=== PATIENT | male | born 1945 | race Caucasian/White ===

== ENCOUNTER → 2016-07-29 | Outpatient (CLI) | payer MEDICARE ==
--- NOTE | 2016-07-29 12:59 | REP ---
Bilateral lower extremity deep vein duplex ultrasound: The deep veins demonstrate normal compression, normal Doppler color flow and normal Doppler waveforms with respiration augmentation at multiple levels bilaterally. Impression: There is no deep vein thrombus on the right or the left. Signed by Lopez Wells MD 07/29/2016 12:49 P
== END ==
LOC: M RAD 11:52
PROVIDERS: ATTEND Physician Assistant Medical
DX: R60.9 Edema, unspecified (principal); J01.90 Acute sinusitis, unspecified; I10 Essential (primary) hypertension; B37.89 Other sites of candidiasis
CPT/HCPCS: 36415; 80053; 83880; 93970; G0463

== ENCOUNTER → 2016-07-29 | Outpatient (REF) | payer MEDICARE ==
[2016-07-29 15:38] LABS: ALBUMIN 4.5 GM/DL (3.2-5.2); ALBUMIN/GLOBULIN RATIO 1.67 (1.00-1.93); ALKALINE PHOSPHATASE 55 U/L (45-117); ALT/SGPT 24 U/L (12-78); ANION GAP 9 MEQ/L (8-16); AST/SGOT 15 U/L (15-37); BILIRUBIN,TOTAL 0.3 MG/DL (0.2-1.0); BLOOD UREA NITROGEN 17 MG/DL (7-18); CALCIUM LEVEL 9.1 MG/DL (8.8-10.2); CARBON DIOXIDE LEVEL 28 MEQ/L (21-32); CHLORIDE LEVEL 105 MEQ/L (98-107); GLOMERULAR FILTRATION RATE > 60.0 (>42); GLUCOSE, FASTING 133 MG/DL (83-110); POTASSIUM SERUM 4.2 MEQ/L (3.5-5.1); SODIUM LEVEL 142 MEQ/L (136-145); TOTAL PROTEIN 7.2 GM/DL (6.4-8.2)
== END ==
LOC: M SFHCPLAZ 11:17
PROVIDERS: ATTEND Physician Assistant Medical
DX: R60.9 Edema, unspecified (principal)

== ENCOUNTER → 2016-10-23 | Outpatient (REF) | payer MEDICARE | LOC: M SFHCPLAZ 13:09 | PROVIDERS: ATTEND Family Medicine | DX: E11.9 Type 2 diabetes mellitus without complications (principal); Z12.5 Encounter for screening for malignant neoplasm of prostate; E55.9 Vitamin D deficiency, unspecified; M10.9 Gout, unspecified; J30.89 Other allergic rhinitis ==

== ENCOUNTER → 2017-01-02 | Outpatient (REF) | payer MEDICARE | LOC: M LAB REF 12:12 | PROVIDERS: ATTEND Physician Assistant | DX: J02.9 Acute pharyngitis, unspecified (principal) ==

== ENCOUNTER 2018-09-14 08:41 | Day surgery (SDC) | payer MEDICARE ==
[~2018-09-14] VITALS: Ht 160 cm; Wt 98.9 kg
[~2018-09-14 08:41] MED LIST: AMLO25TA PO; ASPI81TA85 PO; DOXY-350 PO; GINK1CAP PO; GLIM2TAB PO; IRBE75TA5 PO; METF10004 PO; SILV50CR EXT; TORS10TA3 PO; VITA200020 PO
[2018-09-14] MEDS ORDERED: NS 1,000 ML IV ONE (09:00)
[2018-09-14] MEDS ORDERED: PROPOFOL 200 MG/20 ML VIAL As Ordered ONE ×2 (10:05→10:17)
--- NOTE | 2018-09-14 10:19 | ROOR ---
Patient Name: Richard Bowser Procedure Date: 09/14/2018 10:00 AM Date of : 1945 Age: 73 Room: [facility] Gender: Male Note Status: Finalized Procedure: Colonoscopy Indications: Screening for colorectal malignant neoplasm Providers: Oscar CARDENAS MD Referring MD: Marcos Mckoy MD Requesting Provider: Medicines: Monitored Anesthesia Care Complications: No immediate complications. Procedure: Pre-Anesthesia Assessment: - The heart rate, respiratory rate, oxygen saturations, blood pressure, adequacy of pulmonary ventilation, and response to care were monitored throughout the procedure. The Colonoscope was introduced through the anus and advanced to the cecum, identified by appendiceal orifice and ileocecal valve. The colonoscopy was performed without difficulty. The patient tolerated the procedure well. The quality of the bowel preparation was adequate. Findings: The perianal and digital rectal examinations were normal. Multiple small-mouthed diverticula were found in the sigmoid colon. Internal hemorrhoids were found during retroflexion. The hemorrhoids were medium-sized. The exam was otherwise without abnormality on direct and retroflexion views. Impression: - Diverticulosis in the sigmoid colon. - Internal hemorrhoids. - The examination was otherwise normal on direct and retroflexion views. - No specimens collected. Recommendation: - Repeat colonoscopy in 10 years for screening purposes. Oscar Cardenas MD Oscar CARDENAS MD 09/14/2018 10:19:07 AM Electronically signed by Oscar CARDENAS MD Number of Addenda: 0 Note Initiated On: 09/14/2018 10:00 AM Estimated Blood Loss: Estimated blood loss: none.
[2018-09-14 10:50] VITALS: BP 155/91
== END 2018-09-14 10:53 | disposition home or self-care (01) ==
LOC: M OPP 08:41
PROVIDERS: ATTEND Internal Medicine Gastroenterology
DX: Z12.11 Encounter for screening for malignant neoplasm of colon (principal); Z86.010 Personal history of colon polyps; K57.30 Diverticulosis of large intestine without perforation or abscess without bleeding; K64.8 Other hemorrhoids; I12.9 Hypertensive chronic kidney disease with stage 1 through stage 4 chronic kidney disease, or unspecified chronic kidney disease; E78.5 Hyperlipidemia, unspecified; E11.9 Type 2 diabetes mellitus without complications; N18.9 Chronic kidney disease, unspecified; M10.9 Gout, unspecified; C83.07 Small cell B-cell lymphoma, spleen; Z88.7 Allergy status to serum and vaccine; Z79.899 Other long term (current) drug therapy; Z79.84 Long term (current) use of oral hypoglycemic drugs

== ENCOUNTER → 2018-10-08 | Outpatient (CLI) | payer MEDICARE ==
--- NOTE | 2018-10-08 13:53 | REP ---
REASON: Chronic shoulder pain. There are no priors for comparison. There is mild asymmetric acromioclavicular joint space narrowing without prominent osteophytosis. The glenohumeral relationship is within normal limits. There is no acute fracture, dislocation, or subluxation. IMPRESSION: Chronic changes, as described above. Electronically Signed by Zhao Felix DO 10/08/2018 03:05 P
--- NOTE | 2018-10-08 13:56 | REP ---
REASON: Low back pain. AP and lateral views were obtained. There is moderate posterior disc space narrowing at every level with mild to moderate anterior lipping. Vertebral body height and alignment is within normal limits. Degenerative facet joint changes are suspected at every level bilaterally, particularly L4-5 and L5-S1. The pedicles are intact bilaterally. Partial syndesmophyte formation is seen bilaterally T12-L1 and at L1-L2. IMPRESSION: Chronic changes seen on this limited exam, as described above. Electronically Signed by Zhao Felix DO 10/08/2018 03:06 P
--- NOTE | 2018-10-08 14:11 | REP ---
REASON FOR EXAM: Neck pain posteriorly times 2 weeks, no trauma whatsoever. There is mild disc space narrowing at every level particularly at the C3-4 and 4-5 levels where there is mild anterior and posterior osteophytic ridging. Hypertrophic degenerative facet and uncovertebral joint changes are present at every level bilaterally. This exam is limited by AP and lateral views only. The C7-T1 level cannot be assessed. Limited exam and chronic changes as described above. The dens cannot be effectively evaluated secondary to the superimposition of osseous structures and/or dentition on all views. Although this plain radiographic evaluation of the cervical spine shows no evidence of a fracture, it should be remembered that CT is much more sensitive than plain radiography of the C-spine in detecting fractures. If this examination was ordered to rule out a fracture, then CT of the cervical spine is recommended. Electronically Signed by Zhao Felix DO 10/08/2018 03:07 P
== END ==
LOC: M WUC 12:43
PROVIDERS: ATTEND Nurse Practitioner Family
DX: M25.78 Osteophyte, vertebrae (principal); M25.711 Osteophyte, right shoulder; M50.31 Other cervical disc degeneration, high cervical region

== ENCOUNTER → 2019-07-22 | Outpatient (REF) | payer MEDICARE ==
[~2019-07-22] MED LIST changes: -ASPI81TA85 PO; +ASPI81TA86 PO; -GLIM2TAB PO; +GLIM2TAB4 PO; +IRBE75TA4 PO; -IRBE75TA5 PO
== END ==
LOC: M SFHCPLAZ 15:10
PROVIDERS: ATTEND Family Medicine
DX: L72.0 Epidermal cyst (principal)

== ENCOUNTER 2020-05-07 10:32 | Observation (INO) | payer MEDICARE ==
[~2020-05-07] VITALS: Ht 157.5 cm; Wt 96.4 kg
[2020-05-07 11:34] LABS: BASO # 0.1 10^3/uL (0.0-0.2); BASO % 0.4 % (0.0-1.0); EOS % 0.3 % (0.0-3.0); HEMATOCRIT 47.4 % (42.0-52.0); HEMOGLOBIN 15.5 g/dl (13.5-17.5); LYMPH % 48.3 % (24.0-44.0); MEAN CORPUSCULAR HEMOGLOBIN 29.6 pg (27.0-33.0); MEAN CORPUSCULAR HGB CONC 32.7 g/dl (32.0-36.5); MEAN CORPUSCULAR VOLUME 90.6 fl (80.0-96.0); MONO # 1.3 10^3/uL (0.0-0.8); NEUTROPHILS % 41.7 % (36.0-66.0); PLATELET COUNT, AUTOMATED 292 10^3/uL (150-450); RED BLOOD COUNT 5.23 10^6/uL (4.30-6.10)
[2020-05-07 11:40] LABS: WHITE BLOOD COUNT 14.4 10^3/uL (4.0-10.0)
--- NOTE | 2020-05-07 11:46 | REPVR ---
PROCEDURE INFORMATION: Exam: CT Head Without Contrast Exam date and time: 05/07/2020 11:33 AM Age: 74 years old Clinical indication: Pain; Headache; Additional info: CVA - nursing interventions must not delay CT TECHNIQUE: Imaging protocol: Computed tomography of the head without contrast. Radiation optimization: All CT scans at this facility use at least one of these dose optimization techniques: automated exposure control; mA and/or kV adjustment per patient size (includes targeted exams where dose is matched to clinical indication); or iterative reconstruction. Other technique: STROKE PROTOCOL was implemented. COMPARISON: No relevant prior studies available. FINDINGS: Brain: There is moderate diffuse brain atrophy. No evidence of acute intracranial hemorrhage. No extra-axial fluid collections. There is mild lucency in the cerebral white matter, consistent with microvascular disease. Barber white differentiation is intact. No evidence of mass. Cerebral ventricles: No ventriculomegaly. Bones/joints: No acute fracture. Paranasal sinuses: There is mucosal thickening in maxillary and ethmoid sinuses. There are bilateral maxillary sinus retention cysts or polyps. There is fluid in left maxillary and frontal sinuses Mastoid air cells: No significant mastoid effusion. Vasculature: There is vascular calcification. Soft tissues: Unremarkable as visualized. IMPRESSION: 1. No evidence of acute intracranial abnormality. 2. Microvascular disease. 3. Sinus findings as described. ASSESSMENT: ASPECTS ([place] Stroke Program Early CT Score) is 10. Electronically signed by: Clary Barber On 05/07/2020 11:46:36 AM
[2020-05-07 11:49] LABS: ALBUMIN 4.2 GM/DL (3.2-5.2); ALT/SGPT 40 U/L (12-78); BILIRUBIN,DIRECT 0.2 MG/DL (0.0-0.2); BILIRUBIN,TOTAL 0.6 MG/DL (0.2-1.0); BLOOD UREA NITROGEN 22 MG/DL (7-18); CALCIUM LEVEL 9.4 MG/DL (8.8-10.2); CARBON DIOXIDE LEVEL 28 MEQ/L (21-32); CHLORIDE LEVEL 103 MEQ/L (98-107); CK-MB VALUE MASS 3.8 NG/ML (<3.6); CPK CREATINE PHOSPHOKINASE 90 U/L (39-308); CREATININE FOR GFR 1.01 MG/DL (0.70-1.30); GLOMERULAR FILTRATION RATE > 60.0 (>42); GLUCOSE, FASTING 210 MG/DL (70-100); MB/CK RELATIVE INDEX 4.22 (< OR =4); POTASSIUM SERUM 4.3 MEQ/L (3.5-5.1); SODIUM LEVEL 138 MEQ/L (136-145); TOTAL PROTEIN 6.7 GM/DL (6.4-8.2); TROPONIN I < 0.02 NG/ML (< 0.10)
[2020-05-07 11:57] LABS: INR 0.92; PROTHROMBIN TIME 12.5 SECONDS (12.5-14.3)
[2020-05-07 11:59] LABS: ERYTHROCYTE SEDIMENTATION RATE 1 mm/hr (0-20)
--- NOTE | 2020-05-07 12:23 | REPVR ---
PROCEDURE INFORMATION: Exam: MR Head Without Contrast Exam date and time: 05/07/2020 12:08 PM Age: 74 years old Clinical indication: Dizziness and visual disturbance; Additional info: Third nerve palsy TECHNIQUE: Imaging protocol: MR of the head without contrast. COMPARISON: CT Head without contrast 05/07/2020 11:32 AM FINDINGS: Brain: The ventricles and sulci are proportionally enlarged, consistent with volume loss / atrophy. There is T2 prolongation in the cerebral white matter, consistent with mild microvascular disease. Barber white differentiation is intact. Diffusion weighted images show no restricted diffusion or evidence of acute infarct. There is no mass effect or midline shift. There is no acute intracranial hemorrhage. There are no extra-axial fluid collections. Cerebral ventricles: Normal. No ventriculomegaly. Bones/joints: Unremarkable as visualized. Paranasal sinuses: There is mucosal thickening in maxillary and ethmoid sinuses. There are bilateral maxillary sinus retention cysts or polyps. There is fluid in left maxillary and frontal sinuses Mastoid air cells: No significant mastoid effusion. Orbital cavity: Unremarkable. Soft tissues: Unremarkable as visualized. Other vasculature: Flow voids in main vascular structures are visualized. IMPRESSION: 1. No evidence of acute intracranial abnormality. No evidence of acute infarction, hemorrhage, or mass. 2. Atrophy and microvascular disease. Electronically signed by: Clary Barber On 05/07/2020 12:23:07 PM
--- NOTE | 2020-05-07 13:10 | REP ---
INDICATION: CVA. COMPARISON: PA and lateral chest dated 03/01/2013. TECHNIQUE: Portable AP chest with the patient sitting. FINDINGS: The lung tsang are clear. Cardiac size is normal. The garrick, mediastinum and skeletal structures are unremarkable. IMPRESSION: Essentially negative portable chest <Electronically signed by Lopez Wells > 05/07/20 1300
[2020-05-07] MEDS ORDERED: DEXTROSE 50% 50 ML SYRINGE IV PRN (14:30)
[2020-05-07] MEDS ORDERED: GLUCAGON INJ 1MG VIAL SC PRN (14:30)
[2020-05-07] MEDS ORDERED: GLUCOSE 4GM CHEW TABLET PO PRN (14:30)
[2020-05-07] MEDS ORDERED: ACETAMINOPHEN TAB 650MG DOSE (2X325MG) PO ONE (14:40)
[2020-05-07] MEDS ORDERED: VITA200010 PO (14:48)
[2020-05-07] MEDS ORDERED: GLIM4TAB5 PO (14:48)
[2020-05-07] MEDS ORDERED: ASPI81TA26 PO (14:48)
[2020-05-07] MEDS ORDERED: FARX1TAB5 PO (14:48)
--- NOTE | 2020-05-07 15:20 | REP ---
INDICATION: CVA. COMPARISON: None. TECHNIQUE: Bilateral carotid artery duplex ultrasound. FINDINGS: Peak flow velocities: Right left Internal carotid artery 36.6 cm/sec 49.5 cm/sec Int. Carotid diastolic 7.74 cm/sec 17.8 cm/sec External carotid artery 61.9 cm/sec 49.1 cm/sec Common carotid artery 57.2 cm/sec 100 into cm/sec ICA-CCA ratio 0.64 0.49 There is intimal thickening in the carotid bulb on the right extending into the proximal ICA and proximal ECA. There is focal moderate atheromatous plaque in the bulb on the left just proximal to the ECA. No atheromatous plaque is identified in the ICA. Peak flow velocities are normal bilaterally. There is no stenosis on the right or the left. There is antegrade flow in the vertebral arteries bilaterally IMPRESSION: There is no stenosis on the right or the left. <Electronically signed by Lopez Wells > 05/07/20 [id number]
[2020-05-07] MEDS ORDERED: ASPIRIN 325 MG TAB PO ONE (15:30)
[2020-05-07 15:37] LABS: RSV AMPLIFICATION NEGATIVE (NEGATIVE)
--- NOTE | 2020-05-07 16:01 | HPEPDOC ---
General Date of Admission 05/07/2020 Date of Service: May 07, 2020 Attending Physician: MANUEL DE LEON MD Chief Complaint The patient is a 74-year-old male admitted with a reason for visit of Headache. Source: Patient, RN/MD Exam Limitations: No limitations Timing/Duration: Day(s) (4 days) Severity: Moderate Associated Symptoms: Headaches, Dizziness, Other (R eye double vision) History of Present Illness 74 yo M with a history of NIDDM, CAD, CHF, gout, remote history of lymphoma s/p splenectomy who presented from home for R eye associated double vision that resolves with closing of his right eye, new onset headaches since 4 days ago and associated dizziness, with all the symptoms having begun 4 days ago. He denies a history of prior blood clots, quit smoking many years ago, recent head trauma, history of a prior CVA, LOC, history of migraines, seizures or recent fever, chills, congestion, cough, rashes, or insect bites. In the ED< he was hemodynamically stable, afebrile, breathing comfortably on room air and is a great historian. Workup was notable for CT head that showed no acute intracranial abnormalities with evidence of bilateral maxillary sinus retention cysts or polyps with some fluids and microvascular disease, while MRI brain without contrast showed microvascular disease and age related atrophy without evidence of acute infarct, hemorrhage or masses. WBC was 14.4, Hgb 15.5, platelets 292, Na 138, K 4.3, Cr 1.01, INR 0.92, EKG was in NSR and troponin negative. CXR showed no acute cardiopulmonary abnormalities. On examination he clearly had R oculomotor nerve palsy with failure to adduct the R eye, R eye ptosis and sluggish pupillary reaction. Dr. Ortega consulted Dr. 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 Home Medications Scheduled Amlodipine Besylate (Amlodipine Besylate) 2.5 Mg Tablet, 2.5 MG PO DAILY, (Reported) Aspirin (Aspirin EC) 81 Mg Tablet., 81 MG PO DAILY, (Reported) Cholecalciferol (Vitamin D3) (Vitamin D3) 50 Mcg Tablet, 50 MCG PO DAILY, (Reported) Dapagliflozin Propanediol (Farxiga) 5 Mg Tablet, 5 MG PO DAILY, (Reported) Doxycycline Monohydrate (Doxycycline) 100 Mg Capsule, 100 MG PO BID, (Reported) Ginkgo Biloba [place] Extract (Ginkgo Biloba) 30 Mg Capsule, 60 MG PO DAILY, (Reported) Glimepiride (Glimepiride) 4 Mg Tablet, 4 MG PO BID, (Reported) Irbesartan (Irbesartan) 75 Mg Tablet, 75 MG PO BID, (Reported) Metformin HCl (Metformin HCl) 1,000 Mg Tablet, 1,000 MG PO BID, (Reported) Torsemide (Torsemide) 10 Mg Tablet, 10 MG PO DAILY, (Reported) Allergies Coded Allergies: pneumococcal vaccine (Verified Allergy, Intermediate, hives, 08/31/18) Past Medical History Medical History NIDDM, CAD, CHF, gout, remote history of lymphoma s/p splenectomy Surgical History splenectomy colonscopy cholecystectomy Family History Significant Family History: Heart disease, Hypertension Social History * Smoker: former Smoker Drugs: denies Recent Travel/Sick Contacts: Denies: Recent travel, Recent sick contacts Psychosocial History: No pertinent psych hx A-FIB/CHADSVASC A-FIB History Current/History of A-Fib/PAF?: No Current PO Anticoag Therapy: No Age/Risk Factor Scoring CHADSVASC: CHADSVASC Response (Comments) Value Age Risk Factor Age 65-74 years old 1 Gender Risk Factor Male 0 Hx of CHF Yes 1 Hx of HTN Yes 1 Hx of Stroke/TIA/or VTE Yes 2 Hx of Diabetes Yes 1 Hx of Vascular Disease Yes 1 Total 7 Treatment Treatment ordered: NONE Reason Anticoagulant not given: Not indicated/[id number] Review of Systems Constitutional: Denies: Chills, Fever, Night Sweats Eyes: Denies: Pain, Vision change (R sided diplopia ) ENT: Denies: Head Aches, Ear Pain, Dysphagia Skin: Denies: Rash, Lesions, Breakdown Pulmonary: Denies: Dyspnea, Cough Cardiovascular: Denies: Chest Pain, Palpitations, Orthopnea, Paroxysmal Noc. Dyspnea, Lt Headedness Gastrointestinal: Denies: Nausea, Vomiting, Abdominal Pain, Diarrhea Genitourinary: Denies: Dysuria, Frequency, Incontinence, Retention Hematologic: Denies: Bruising, Bleeding Excessively Endocrine: Denies: Polydipsia, Polyphagia, Polyuria, Heat Intolerance, Cold Intolerance, Other Endocrine Sx Musculoskeletal: Denies: Neck Pain, Back Pain, Joint Pain, Muscle Pain, Spasms Neurological: Reports: Other Symptoms (R sided double vision, headaches, dizziness); Denies: Weakness, Numbness, Change in speech, Confusion Psych: Reports: Mood Normal; Denies: Depression, Memory Issues Physical Examination General Exam: Positive: Alert, No Acute Distress Eye Exam: Positive: EOMI, Ptosis (R sided); Negative: PERRLA (Pupils are equal but reaction of R pupil is sluggish), Conjunctiva & lids normal (R eyelid with ptosis), Sclera icteric ENT Exam: Positive: Atraumatic, Mucous membr. moist/pink, Pharynx Normal Neck Exam: Positive: Supple; Negative: JVD, thyromegaly Chest Exam: Positive: Clear to auscultation, Normal air movement Heart Exam: Positive: Rate Normal, Regular Rhythm, Normal S1, Normal S2; Negative: Murmurs, Rubs Telemetry: Positive: No significant arrhythmia Abdomen Exam: Positive: Normal bowel sounds, Soft; Negative: Tenderness, Hepatospenomegaly Extremity Exam: Positive: Normal pulses; Negative: Clubbing, Cyanosis, Edema Skin Exam: Positive: Nl turgor and temperature; Negative: Breakdown, Lesion Neuro Exam: Positive: Normal Speech, Strength at 5/5 X4 ext, Normal Tone, Sensation Intact, Reflexes 2+; Negative: Cranial Nerves 3-12 NL (R eye unable to adduct, reaction to light is sluggish and eyelid has ptosis. The rest of the cranial nerves appear intact) Psych Exam: Positive: Mental status NL, Mood NL, Oriented x 3 Vital Signs Vital Signs Date Time Temp Pulse Resp B/P (MAP) Pulse Ox O2 Delivery O2 Flow Rate FiO2 05/07/20 10:57 05/07/20 10:49 97.3 84 24 97 Room Air Laboratory Data Labs 24H Laboratory Tests 2 05/07/20 11:03: Immature Granulocyte % (Auto) 0.3, Neutrophils (%) (Auto) 41.7, Lymphocytes (%) (Auto) 48.3H, Monocytes (%) (Auto) 9.0H, Eosinophils (%) (Auto) 0.3, Basophils (%) (Auto) 0.4, Neutrophils # (Auto) 6.0, Lymphocytes # (Auto) 7.0H, Monocytes # (Auto) 1.3H, Eosinophils # (Auto) 0.0, Basophils # (Auto) 0.1, Nucleated Red Blood Cells % (auto) 0.0, Erythrocyte Sedimentation Rate 1, Prothrombin Time 12.5, Prothromb Time International Ratio 0.92, Activated Partial Thromboplast Time 28.0, Anion Gap 7L, Glomerular Filtration Rate > 60.0, Calcium Level 9.4, Total Bilirubin 0.6, Direct Bilirubin 0.2, Aspartate Amino Transf (AST/SGOT) 15, Alanine Aminotransferase (ALT/SGPT) 40, Alkaline Phosphatase 60, Total Creatine Kinase 90, Creatine Kinase MB 3.8H, Creatine Kinase MB Relative Index 4.22H, Troponin I < 0.02, C-Reactive Protein, Quantitative 0.30, Total Protein 6.7, Albumin 4.2, Albumin/Globulin Ratio 1.7 05/07/20 14:37: CBC/BMP Laboratory Tests 05/07/20 11:03 Assessment/Plan 4 yo M with a history of NIDDM, CAD, CHF, gout, remote history of lymphoma s/p splenectomy who presented from home for R eye associated double vision that resolves with closing of his right eye, new onset headaches since 4 days ago and associated dizziness, with all the symptoms having begun 4 days ago now found to have 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 Suarez, who recommended ASA, lipitor, MRA brain and carotid US -TTE with bubble -telemetry -PT for dizziness -Q4H VS and neuro checks -BP well controlled, will hold is home CCB and diuretic while normotensive and euvolemic at this time -check lipid panel and Hgb a1c -f/u lyme nad syphillis testing DM -hold home oral antihyperglycemic agents -SSI ACHS -FSBG AChS -hypoglycemia protocol Chronic CHF: euvolemic at this time -will hold home torsemide for now HTN: normotensive -hold CCB, torsemide CAD: -continue home ASA 81 daily, start lipitor 80 DVT ppx: heparin SQ Dispo: medusrg with tele, obs. Plan / VTE VTE Prophylaxis Ordered?: Yes MANUEL DE LEON MD May 07, 2020 16:01
[2020-05-07 16:26] LABS: HEMOGLOBIN A1c 9.4 %
[2020-05-07 16:44] LABS: CHOLESTEROL LEVEL 170 MG/DL (<200); CHOLESTEROL RISK RATIO 2.881 (<5); HDL CHOLESTEROL 59 MG/DL (>40); LDL CHOLESTEROL 88 MG/DL (<100); NON-HDL-C 111 MG/DL; TRIGLYCERIDES LEVEL 116 MG/DL (<150)
[2020-05-07 17:02] VITALS: BP 127/91
[2020-05-07] MEDS: HumaLOG INSULIN (NovoLOG) PER UNIT SC SCH (18:51)
[2020-05-07] MEDS: HEPARIN SOD (PORCINE) 5000UNITS/ML 1ML VIAL/SYRINGE SC SCH (20:27)
[2020-05-07] MEDS ORDERED: KETOROLAC 30 MG/ML 1ML VIAL IV ONE (20:50)
[2020-05-07] MEDS ORDERED: HumaLOG INSULIN (NovoLOG) PER UNIT SC SCH (21:00)
[2020-05-07] MEDS ORDERED: ATORVASTATIN 20 MG TAB PO SCH (21:00)
[2020-05-07 22:00] VITALS: BP_SYST 128; BP_SYST 166; BP_DIAS 83; BP_DIAS 89
[2020-05-08 04:00] VITALS: BP 128/89
[2020-05-08 06:00] VITALS: BP 161/80
[2020-05-08 06:25] LABS: HEMATOCRIT 44.2 % (42.0-52.0); HEMOGLOBIN 14.5 g/dl (13.5-17.5); MEAN CORPUSCULAR HEMOGLOBIN 29.7 pg (27.0-33.0); MEAN CORPUSCULAR HGB CONC 32.8 g/dl (32.0-36.5); MEAN CORPUSCULAR VOLUME 90.6 fl (80.0-96.0); PLATELET COUNT, AUTOMATED 263 10^3/uL (150-450); RED BLOOD COUNT 4.88 10^6/uL (4.30-6.10); WHITE BLOOD COUNT 17.7 10^3/uL (4.0-10.0)
[2020-05-08 06:44] LABS: BLOOD UREA NITROGEN 22 MG/DL (7-18); CALCIUM LEVEL 8.9 MG/DL (8.8-10.2); CARBON DIOXIDE LEVEL 27 MEQ/L (21-32); CHLORIDE LEVEL 105 MEQ/L (98-107); CREATININE FOR GFR 0.95 MG/DL (0.70-1.30); GLOMERULAR FILTRATION RATE > 60.0 (>42); GLUCOSE, FASTING 193 MG/DL (70-100); MAGNESIUM LEVEL 2.2 MG/DL (1.8-2.4); POTASSIUM SERUM 4.3 MEQ/L (3.5-5.1); SODIUM LEVEL 139 MEQ/L (136-145)
--- NOTE | 2020-05-08 07:54 | REPVR ---
PROCEDURE INFORMATION: Exam: MR Angiogram Head Without Contrast, Arteries Exam date and time: 05/08/2020 2:29 PM Age: 74 years old Clinical indication: Visual disturbance; Sudden visual loss; Patient HX: Right side vision disturbance; Additional info: CVA TECHNIQUE: Imaging protocol: MR angiogram head without contrast. Exam focused on the arteries. COMPARISON: MRI-Brain without Contrast 05/07/2020 11:47 AM FINDINGS: ANTERIOR CIRCULATION: Right internal carotid artery: No occlusion, stenosis, or aneurysm. Right middle cerebral artery: No occlusion, stenosis, or aneurysm. Right anterior cerebral artery: No occlusion, stenosis, or aneurysm. Left internal carotid artery: No occlusion, stenosis, or aneurysm. Left middle cerebral artery: No occlusion, stenosis, or aneurysm. Left anterior cerebral artery: No occlusion, stenosis, or aneurysm. POSTERIOR CIRCULATION: Right vertebral artery: No occlusion, stenosis, or dissection. Left vertebral artery: No occlusion, stenosis, or dissection. Basilar artery: No occlusion, significant stenosis, or aneurysm. Right posterior cerebral artery: No occlusion, stenosis, or aneurysm. Left posterior cerebral artery: No occlusion, stenosis, or aneurysm. IMPRESSION: Normal appearance of the intracranial arteries. No evidence of stenosis, occlusion, or aneurysm. Electronically signed by: Yeimy Singh On 05/08/2020 07:54:38 AM
[2020-05-08 08:00] VITALS: BP 124/88
[2020-05-08] MEDS: HEPARIN SOD (PORCINE) 5000UNITS/ML 1ML VIAL/SYRINGE SC SCH (08:53)
[2020-05-08] MEDS: HumaLOG INSULIN (NovoLOG) PER UNIT SC SCH ×2 (08:54→11:52)
[2020-05-08] MEDS ORDERED: ASPIRIN 81 MG CHEW TABLET PO SCH (09:00)
--- NOTE | 2020-05-08 10:46 | ECHO ---
DATE OF PROCEDURE: 05/07/2020 Age: 74 Gender: Male REFERRING PHYSICIAN: Elsa Helms M.D. PATIENT LOCATION: Room 4214. REASON FOR STUDY: Cerebrovascular accident (CVA) . 2D MEASUREMENTS: IVS 1.0 cm LV 4.0 cm LVPW 1.0 cm LA 3.6 cm Aorta 3.4 cm RV 3.5 cm Ascending aorta 3.5 DOPPLER MEASUREMENT Peak velocity across the aortic valve 1.1 m/s Peak velocity across the LVOT 0.94 m/s Mitral E 0.65 Mitral A 0.82 with a ratio of 0.8 2D COMMENTS: 1. Technically limited study due to poor acoustic window. 2. The left ventricle size is normal, as well as the left ventricular wall thickness. Left ventricular systolic function also is normal, estimated at 60% to 65%. 3. Normal left atrium. Normal right atrium and right ventricle. 4. The atrial septum appeared to be normal without evidence of defect or shunt. 5. Normal aortic root and ascending aorta. 6. Trace pericardial effusion, no evidence of cardiac tamponade. 7. Minimally calcified aortic valve with normal leaflet excursion. Mildly calcified mitral annulus with normal anterior mitral valve leaflet motion. Normal tricuspid valve. The pulmonic valve and proximal pulmonary artery branches were not well visualized. 8. The inferior vena cava was not visualized. 9. Doppler with no significant valvular abnormalities detected. Abnormal relaxation pattern was noted across the mitral valve leaflets, as well as the mitral valve annulus consistent with features of grade 1 left ventricular diastolic dysfunction. IMPRESSION: 1. Technically limited study due to poor acoustic window. 2. Normal global left ventricular systolic function. There are some features of grade 1 left ventricular diastolic dysfunction manifested by abnormal relaxation. 3. Trace pericardial effusion. MTDD
[2020-05-08] MEDS ORDERED: ACETAMINOPHEN TAB 650MG DOSE (2X325MG) PO PRN (11:15)
[2020-05-08] MEDS ORDERED: REMDESIVIR 200 MG in NS 250 ML IV ONE (11:20)
[2020-05-08] MEDS ORDERED: ATOR80TA59 PO (11:42)
[2020-05-08 12:05] LABS: VITAMIN B12 LEVEL 605 PG/ML (247-911)
[2020-05-08] MEDS ORDERED: SODIUM CHLORIDE 0.9% INJ 10 ML SYR IV ONE (13:20)
--- NOTE | 2020-05-08 15:02 | DS.PDOC ---
Discharge Summary General Date of Admission May 07, 2020 at 14:29 Date of Discharge May 08, 2020. Attending Physician: FENG PELLETIER MD Discharge Summary PROCEDURES PERFORMED DURING STAY: None. ADMITTING DIAGNOSES: 1. 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 2. DM. 3. Chronic CHF. 4. HTN. 5. CAD. DISCHARGE DIAGNOSES: 1. CN III palsy. 2. DM. COMPLICATIONS/CHIEF COMPLAINT: Third Nerve Palsy Of R Eye. HISTORY OF PRESENT ILLNESS: 74 yo M with a history of NIDDM, CAD, CHF, gout, remote history of lymphoma s/p splenectomy who presented from home for R eye associated double vision that resolves with closing of his right eye, new onset headaches since 4 days ago and associated dizziness, with all the symptoms having begun 4 days ago. He denies a history of prior blood clots, quit smoking many years ago, recent head trauma, history of a prior CVA, LOC, history of migraines, seizures or recent fever, chills, congestion, cough, rashes, or insect bites. In the ED< he was hemodynamically stable, afebrile, breathing comfortably on room air and is a great historian. Workup was notable for CT head that showed no acute intracranial abnormalities with evidence of bilateral maxillary sinus retention cysts or polyps with some fluids and microvascular disease, while MRI brain without contrast showed microvascular disease and age related atrophy without evidence of acute infarct, hemorrhage or masses. WBC was 14.4, Hgb 15.5, platelets 292, Na 138, K 4.3, Cr 1.01, INR 0.92, EKG was in NSR and troponin negative. CXR showed no acute cardiopulmonary abnormalities. On examination he clearly had R oculomotor nerve palsy with failure to adduct the R eye, R eye ptosis and sluggish pupillary reaction. Dr. Ortega consulted Dr. Suarez who recommen ded ASA/lipitor and observation while getting MRA brain and carotid US for 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 Pt was admitted to observation for further workup. HOSPITAL COURSE: Overnight, pt had no acute events. Pt complains of a headache, fatigue, double vision, and pain behind his R eye. He reports that his sx are better than they were at the time of admission. Otherwise denies any chest pain, SOB, abd pain, N/V/D, constipation, or edema. Further work up after admission were negative with MRA showing no evidence of stenosis, occlusion, or aneurysm and carotid US showing no stenosis bilaterally. Pt labs returned negative for syphilis and Lyme is currently pending. Given pt hx of DM and poor glycemic control as demonstrated by A1C of 9.4, it is possible that pt CN III palsy is due to hyperglycemia induced nerve damage causing sx. After further discussion with Dr. Suarez, he instructs to d/c pt with eye patch after MRA results and have pt f/u outpatient in office with him. DISCHARGE MEDICATIONS: Please see below. ALLERGIES: Please see below. PHYSICAL EXAMINATION ON DISCHARGE: VITAL SIGNS: Please see below. GENERAL: Pt is laying comfortably at rest. No acute distress. HEENT: NC/AT. Ptosis to R eye. Unable to adduct the R eye. R pupil is sluggish to respond to light. L eye otherwise nl with EOMI and pupils round and reactive to light and accommodation. Moist mucous membranes. Tongue midline. NECK: Trachea midline. CARDIOVASCULAR EXAMINATION: Regular rate and rhythm. No murmurs, rubs, or gallops appreciated. RESPIRATORY EXAMINATION: Good breath sounds bilaterally. No wheezes, rales, or rhonchi appreciated. ABDOMINAL EXAMINATION: Abd non-tender to palpation. Normoactive bowel sounds to all four quadrants. EXTREMITIES: No pitting edema appreciated. Strength 5/5 in all four extremities. SKIN: No rashes or lesions appreciated. NEUROLOGICAL EXAMINATION: R CN III palsy noted (R eye ptosis, inability to adduct R eye, and R pupil sluggish to respond to light). Decreased sensation to the R in the distribution of the ophthalmic nerve. Otherwise sensations intact. No facial droop. PSYCHIATRIC EXAMINATION: Normal mood and affect. LABORATORY DATA: Please see below. IMAGING: CT Head (05/07/20): IMPRESSION - No evidence of acute intracranial abnormality. Microvascular disease. Sinus findings as described. MRI Brain (05/07/20): IMPRESSION - No evidence of acute intracranial abnormality. No evidence of acute infarction, hemorrhage, or mass. Atrophy and microvascular disease. CXR (05/07/20): IMPRESSION - Essentially negative portable chest. Carotid US (05/07/20): IMPRESSION - There is no stenosis on the R or the L. MRA (05/08/20): IMPRESSION - Normal appearance of the intracranial arteries. No evidence of stenosis, occlusion, or aneurysm. PROGNOSIS: Fair. ACTIVITY: As tolerated. DIET: Consistent carb diet. DISCHARGE PLAN: Discharge home. DISCHARGE INSTRUCTIONS: 1. Follow up with PCP. 2. Follow up with neurology, Dr. Suarez, in regards to CN III palsy. 3. Return to ER if sx worsen. ITEMS TO FOLLOWUP ON ON OUTPATIENT: 1. Follow up with neurology, Dr. Suarez, in regards to CN III palsy. 2. Follow up with PCP. DISCHARGE CONDITION: Stable. TIME SPENT ON DISCHARGE: Greater than 35 minutes. Vital Signs/I&Os Vital Signs Date Time Temp Pulse Resp B/P (MAP) Pulse Ox O2 Delivery O2 Flow Rate FiO2 05/08/20 08:00 98.2 70 18 124/88 100 Room Air I&O- Last 24 Hours up to 6 AM 05/08/20 06:00 Intake Total 900 ml Output Total 400 ml Balance 500 ml Laboratory Data Labs 24H Laboratory Tests 2 05/07/20 14:37: Coronavirus (COVID-19)(PCR) NEGATIVE, Influenza Type A (RT-PCR) NEGATIVE, Influenza Type B (RT-PCR) NEGATIVE, Respiratory Syncytial Virus (PCR) NEGATIVE 05/07/20 17:26: Bedside Glucose (Misc Panel) 169H 05/07/20 20:32: Bedside Glucose (Misc Panel) 231H 05/08/20 06:08: Nucleated Red Blood Cells % (auto) 0.0, Anion Gap 7L, Glomerular Filtration Rate > 60.0, Calcium Level 8.9, Magnesium Level 2.2 CBC/BMP Laboratory Tests 05/08/20 06:08 FSBS Laboratory Tests Test 05/07/20 17:26 05/07/20 20:32 Range/Units Bedside Glucose (Misc Panel) 169 231 83-110 MG/DL Discharge Medications Scheduled Amlodipine Besylate (Amlodipine Besylate) 2.5 Mg Tablet, 2.5 MG PO DAILY, (Reported) Aspirin (Aspirin EC) 81 Mg Tablet., 81 MG PO DAILY, (Reported) Atorvastatin Calcium (Atorvastatin Calcium) 80 Mg Tablet, 1 TAB PO DAILY Cholecalciferol (Vitamin D3) (Vitamin D3) 50 Mcg Tablet, 50 MCG PO DAILY, (Reported) Dapagliflozin Propanediol (Farxiga) 5 Mg Tablet, 5 MG PO DAILY, (Reported) Doxycycline Monohydrate (Doxycycline) 100 Mg Capsule, 100 MG PO BID, (Reported) Ginkgo Biloba [place] Extract (Ginkgo Biloba) 30 Mg Capsule, 60 MG PO DAILY, (Reported) Glimepiride (Glimepiride) 4 Mg Tablet, 4 MG PO BID, (Reported) Irbesartan (Irbesartan) 75 Mg Tablet, 75 MG PO BID, (Reported) Metformin HCl (Metformin HCl) 1,000 Mg Tablet, 1,000 MG PO BID, (Reported) Torsemide (Torsemide) 10 Mg Tablet, 10 MG PO DAILY, (Reported) Allergies Coded Allergies: pneumococcal vaccine (Verified Allergy, Intermediate, hives, 08/31/18) GME ATTESTATION GME ATTESTATION My faculty preceptor for this patient encounter was physically present during the encounter and was fully available. All aspects of the patient interview, examination, medical decision making process, and medical care plan development were reviewed and approved by the faculty preceptor. The faculty preceptor is aware and concurs with the plan as stated in the body of this note and will attest to such by his/her cosignature. ATTENDING NOTE I, Feng Pelletier MD, have independently examined this patient and performed my own physical exam, as well as reviewed the documentation and edited where necessary. I have discussed in detail with the resident / student the findings and plan of treatment as documented by the resident / student and edited their note. I agree with their findings and treatment plan and have edited their documentation Gabby TAYLOR OMS-[id number] May 08, 2020 12:40 FENG PELLETIER MD May 10, 2020 09:52
--- NOTE | 2020-05-08 17:29 | ECGEPIP ---
[facility] - ED Test Date: 2020-05-07 Pat Name: NACHO PRECIADO Department: Room: - Gender: Male Airplane Pilot: : [id number] Requested By: KITTY Mcdonald Order Number: [id number] Reading MD: Ashley Wiseman Measurements Intervals [place] Rate: 66 P: 44 ME: 200 QRS: -58 QRSD: 124 T: 20 QT: 390 QTc: 408 Interpretive Statements Normal sinus rhythm Left anterior fascicular block Left ventricular hypertrophy with QRS widening ( R in aVL , Leoanrdo product ) No prior Electronically Signed on 05-08-2020 17:29:16 EDT by Ashley Wiseman
[2020-05-09] MEDS ORDERED: REMDESIVIR 100 MG in NS 250 ML IV SCH (11:20)
[2020-05-09] MEDS ORDERED: SODIUM CHLORIDE 0.9% INJ 10 ML SYR IV SCH (12:20)
[2020-05-09 14:14] LABS: Lyme Disease IgG/IgM Antibodie <0.91 ISR (0.00-0.90); Lyme Disease IgM Ab Quantitati <0.80 index (0.00-0.79)
== END 2020-05-08 14:14 | disposition home or self-care (01) ==
LOC: M ED 10:32 → M ED INP 14:29 → ENRESERV 15:53 → M MSPAV 17:02
PROVIDERS: ADMIT Internal Medicine; ATTEND Internal Medicine
DX: H49.01 Third [oculomotor] nerve palsy, right eye (principal); E11.9 Type 2 diabetes mellitus without complications; I50.9 Heart failure, unspecified; I11.9 Hypertensive heart disease without heart failure; I25.10 Atherosclerotic heart disease of native coronary artery without angina pectoris; M10.9 Gout, unspecified; Z85.71 Personal history of Hodgkin lymphoma; Z87.891 Personal history of nicotine dependence; Z79.82 Long term (current) use of aspirin; Z79.899 Other long term (current) drug therapy; Z86.73 Personal history of transient ischemic attack (TIA), and cerebral infarction without residual deficits
CPT/HCPCS: 36415; 70450; 70544; 70551; 71045; 80048; 80061; 80076; 82550; 82553; 82607; 83036; 83735; 84484; 85025; 85027; 85610; 85652; 85730; 86140; 86617; 86780; 86850; 86900; 86901; 87631; 93005; 93041; 93306; 93880; 94760; 96372; 96374; 97161; 99285; G0378; J1644; J1885

== ENCOUNTER → 2021-10-23 | Outpatient (CLI) | payer MEDICARE ==
[~2021-10-23] MED LIST changes: +ASPI81TA26 PO; +ATOR80TA59 PO; +FARX1TAB5 PO; +GLIM4TAB5 PO; +VITA200010 PO
[2021-10-23 14:41] LABS: CREATININE, URINE 70.4 MG/DL; MALB URINE SIEMENS 13.9 MG/L; MAU/CREAT RATIO 19.7 MCG/MG (0.0-30.0)
[2021-10-23 14:45] LABS: ALBUMIN 4.1 GM/DL (3.2-5.2); ALT/SGPT 27 U/L (12-78); BILIRUBIN,TOTAL 0.5 MG/DL (0.2-1.0); BLOOD UREA NITROGEN 25 MG/DL (7-18); CALCIUM LEVEL 9.7 MG/DL (8.8-10.2); CARBON DIOXIDE LEVEL 27 MEQ/L (21-32); CHLORIDE LEVEL 101 MEQ/L (98-107); CHOLESTEROL LEVEL 184 MG/DL (<200); CHOLESTEROL RISK RATIO 2.787 (<5); CREATININE FOR GFR 1.09 MG/DL (0.70-1.30); FREE T4 0.92 NG/DL (0.76-1.46); GLOMERULAR FILTRATION RATE > 60.0 (>42); GLUCOSE, FASTING 200 MG/DL (70-100); HDL CHOLESTEROL 66 MG/DL (>40); LDL CHOLESTEROL 95 MG/DL (<100); NON-HDL-C 118 MG/DL; NT-PRO BNP 56 PG/ML (<450); POTASSIUM SERUM 4.4 MEQ/L (3.5-5.1); SODIUM LEVEL 136 MEQ/L (136-145); THYROID STIMULATING HORMONE 0.661 uIU/ML (0.358-3.740); TOTAL PROTEIN 6.8 GM/DL (6.4-8.2); TRIGLYCERIDES LEVEL 117 MG/DL (<150); URIC ACID 6.2 MG/DL (3.5-7.2)
[2021-10-23 16:26] LABS: HEMOGLOBIN A1c 11.4 %
== END ==
LOC: M PLALAB 11:20
PROVIDERS: ATTEND Family Medicine
DX: M10.9 Gout, unspecified (principal); E11.9 Type 2 diabetes mellitus without complications; Z12.5 Encounter for screening for malignant neoplasm of prostate; I10 Essential (primary) hypertension
CPT/HCPCS: 36415; 80053; 80061; 82043; 83036; 83880; 84439; 84443; 84550; G0103

== ENCOUNTER → 2021-12-26 | Outpatient (REF) | payer MEDICARE ==
[~2021-12-26] MED LIST changes: -DOXY-350 PO; +DOXY-444 PO; +TRAZ-252 PO
[2021-12-26 13:08] LABS: HEMATOCRIT 47.8 % (42.0-52.0); HEMOGLOBIN 15.3 g/dl (13.5-17.5); MEAN CORPUSCULAR HEMOGLOBIN 30.1 pg (27.0-33.0); MEAN CORPUSCULAR VOLUME 94.1 fl (80.0-96.0); PLATELET COUNT, AUTOMATED 248 10^3/uL (150-450); RED BLOOD COUNT 5.08 10^6/uL (4.30-6.10)
[2021-12-26 13:20] LABS: INR 0.89; PROTHROMBIN TIME 12.2 SECONDS (12.5-14.5)
[2021-12-26 14:05] LABS: BLOOD UREA NITROGEN 19 MG/DL (7-18); CALCIUM LEVEL 9.8 MG/DL (8.8-10.2); CARBON DIOXIDE LEVEL 27 MEQ/L (21-32); CHLORIDE LEVEL 102 MEQ/L (98-107); CREATININE FOR GFR 1.06 MG/DL (0.70-1.30); GLOMERULAR FILTRATION RATE > 60.0 (>42); GLUCOSE, FASTING 156 MG/DL (70-100); POTASSIUM SERUM 4.2 MEQ/L (3.5-5.1); SODIUM LEVEL 135 MEQ/L (136-145)
[2021-12-26 14:19] LABS: ALBUMIN 4.2 GM/DL (3.2-5.2); ALT/SGPT 32 U/L (12-78); BILIRUBIN,TOTAL 0.5 MG/DL (0.2-1.0); BLOOD UREA NITROGEN 19 MG/DL (7-18); CALCIUM LEVEL 9.5 MG/DL (8.8-10.2); CARBON DIOXIDE LEVEL 27 MEQ/L (21-32); CHLORIDE LEVEL 102 MEQ/L (98-107); CREATININE FOR GFR 1.02 MG/DL (0.70-1.30); GLOMERULAR FILTRATION RATE > 60.0 (>42); GLUCOSE, FASTING 153 MG/DL (70-100); POTASSIUM SERUM 4.6 MEQ/L (3.5-5.1); SODIUM LEVEL 139 MEQ/L (136-145); TOTAL PROTEIN 6.9 GM/DL (6.4-8.2)
[2021-12-26 19:57] LABS: HEMOGLOBIN A1c 9.4 %
== END ==
LOC: M SFHCADAM 10:28
PROVIDERS: ATTEND Family Medicine
DX: N47.1 Phimosis (principal); E11.65 Type 2 diabetes mellitus with hyperglycemia; B35.6 Tinea cruris

== ENCOUNTER → 2022-02-07 | Outpatient (CLI) | payer MEDICARE | LOC: M ADAMS 14:28 | PROVIDERS: ATTEND Family Medicine | DX: R07.81 Pleurodynia (principal); W00.9XXA Unspecified fall due to ice and snow, initial encounter ==

== ENCOUNTER 2022-02-10 10:47 | Observation (INO) | payer MEDICARE ==
[~2022-02-10] VITALS: Ht 162.6 cm; Wt 95.5 kg
[2022-02-10] MEDS ORDERED: HYDR-3713 PO (11:00)
[2022-02-10] MEDS ORDERED: FARX1TAB3 PO (11:00)
[2022-02-10 11:58] LABS: BASO # 0.1 10^3/uL (0.0-0.2); BASO % 0.3 % (0.0-1.0); EOS # 0.1 10^3/uL (0.0-0.5); EOS % 0.3 % (0.0-3.0); HEMATOCRIT 48.2 % (42.0-52.0); HEMOGLOBIN 15.8 g/dl (13.5-17.5); LYMPH # 3.6 10^3/uL (1.5-5.0); LYMPH % 22.4 % (24.0-44.0); MEAN CORPUSCULAR HEMOGLOBIN 29.8 pg (27.0-33.0); MEAN CORPUSCULAR HGB CONC 32.8 g/dl (32.0-36.5); MEAN CORPUSCULAR VOLUME 90.9 fl (80.0-96.0); MONO # 1.5 10^3/uL (0.0-0.8); MONO % 9.4 % (2.0-8.0); NEUTROPHILS # 10.7 10^3/uL (1.5-8.5); NEUTROPHILS % 67.3 % (36.0-66.0); PLATELET COUNT, AUTOMATED 220 10^3/uL (150-450); WHITE BLOOD COUNT 15.9 10^3/uL (4.0-10.0)
[2022-02-10] MEDS ORDERED: PERCOCET 5MG/325MG TAB PO ONE (12:20)
[2022-02-10 12:23] LABS: ALBUMIN 3.9 G/DL (3.2-5.2); BILIRUBIN,DIRECT 0.2 MG/DL (<0.4); BILIRUBIN,TOTAL 0.7 MG/DL (0.3-1.2); TOTAL PROTEIN 6.8 G/DL (5.7-8.2)
[2022-02-10] MEDS ORDERED: AZITHROMYCIN 250MG TABLET PO ONE (13:20)
[2022-02-10 13:22] LABS: RSV AMPLIFICATION NEGATIVE (NEGATIVE)
[2022-02-10] MEDS ORDERED: ATOR80TA59 PO (13:42)
[2022-02-10] MEDS ORDERED: HOME MED LIST COMPLETE! XX SCH (13:45)
[2022-02-10] MEDS ORDERED: traZODone 50 MG TAB PO PRN (14:05)
[2022-02-10] MEDS ORDERED: GLUCAGON INJ 1MG VIAL SC PRN (14:15)
[2022-02-10] MEDS ORDERED: GLUCOSE 4GM CHEW TABLET PO PRN (14:15)
[2022-02-10] MEDS ORDERED: DEXTROSE 50% 50ML SYRINGE IV PRN (14:15)
[2022-02-10] MEDS ORDERED: amLODIPine 5 MG TAB PO ONE (15:00)
[2022-02-10] MEDS ORDERED: LIDOCAINE 5% (LIDODERM) PATCH TD ONE (15:00)
[2022-02-10] MEDS ORDERED: NS 500 ML IV ONE (15:00)
[2022-02-10] MEDS ORDERED: LOSARTAN 50MG TABLET PO ONE (16:00)
[2022-02-10] MEDS: INSULIN LISPRO (NovoLOG) PER UNIT SC SCH ×2 (19:05→21:00)
[2022-02-10] MEDS: ATORVASTATIN 20 MG TAB PO SCH (21:11)
[2022-02-10] MEDS: ASPIRIN 81MG ENTERIC TABLET PO SCH (21:12)
[2022-02-10] MEDS: PERCOCET 5MG/325MG TAB PO PRN (21:13)
[2022-02-10] MEDS: ENOXAPARIN 40MG/0.4ML SYRINGE (J1650 PER 10MG) SC SCH (21:14)
[2022-02-10] MEDS: MORPHINE 2 MG/ML 1ML VIAL IV PRN (23:42)
[2022-02-11] MEDS: MORPHINE 2 MG/ML 1ML VIAL IV PRN ×2 (04:04→10:56)
[2022-02-11 07:44] LABS: ALBUMIN 3.2 G/DL (3.2-5.2); ALKALINE PHOSPHATASE 73 U/L (46-116); ALT/SGPT 15 U/L (7.0-40); AST/SGOT 15 U/L (<34); BILIRUBIN,TOTAL 0.6 MG/DL (0.3-1.2); BLOOD UREA NITROGEN 21 MG/DL (9-23); CALCIUM LEVEL 8.7 MG/DL (8.3-10.6); CARBON DIOXIDE LEVEL 27 MMOL/L (20-31); CHLORIDE LEVEL 101 MMOL/L (98-107); CREATININE FOR GFR 0.86 MG/DL (0.70-1.30); GLOMERULAR FILTRATION RATE > 60.0 (>42); GLUCOSE, FASTING 150 MG/DL (74-106); POTASSIUM SERUM 4.2 MMOL/L (3.5-5.1); SODIUM LEVEL 136 MMOL/L (136-145); TOTAL PROTEIN 5.8 G/DL (5.7-8.2)
[2022-02-11 09:00] VITALS: BP 115/64
[2022-02-11] MEDS: LOSARTAN 50MG TABLET PO SCH (09:07)
[2022-02-11] MEDS: INSULIN LISPRO (NovoLOG) PER UNIT SC SCH ×4 (09:07→21:00)
[2022-02-11] MEDS: PERCOCET 5MG/325MG TAB PO PRN ×3 (09:12→18:32)
[2022-02-11 10:14] LABS: BASO # 0.1 10^3/uL (0.0-0.2); BASO % 0.4 % (0.0-1.0); EOS # 0.1 10^3/uL (0.0-0.5); EOS % 0.5 % (0.0-3.0); HEMATOCRIT 45.2 % (42.0-52.0); HEMOGLOBIN 14.7 g/dl (13.5-17.5); LYMPH # 6.5 10^3/uL (1.5-5.0); LYMPH % 32.5 % (24.0-44.0); MEAN CORPUSCULAR HEMOGLOBIN 29.7 pg (27.0-33.0); MEAN CORPUSCULAR HGB CONC 32.5 g/dl (32.0-36.5); MEAN CORPUSCULAR VOLUME 91.3 fl (80.0-96.0); MONO % 13.9 % (2.0-8.0); NEUTROPHILS # 10.4 10^3/uL (1.5-8.5); NEUTROPHILS % 52.3 % (36.0-66.0); PLATELET COUNT, AUTOMATED 227 10^3/uL (150-450); RED BLOOD COUNT 4.95 10^6/uL (4.30-6.10); WHITE BLOOD COUNT 19.9 10^3/uL (4.0-10.0)
[2022-02-11 10:54] LABS: MONO # 2.8 10^3/uL (0.0-0.8)
[2022-02-11] MEDS: DOXYCYCLINE HYCLATE 100MG TABLET PO SCH ×2 (13:02→21:59)
[2022-02-11] MEDS: LIDOCAINE 5% (LIDODERM) PATCH TD SCH (13:02)
[2022-02-11] MEDS: cefTRIAXone SOD 1 GM in D5W MINI-BAG PLUS 50 ML IV SCH (13:03)
[2022-02-11] MEDS: ENOXAPARIN 40MG/0.4ML SYRINGE (J1650 PER 10MG) SC SCH (21:59)
[2022-02-11] MEDS: ASPIRIN 81MG ENTERIC TABLET PO SCH (21:59)
[2022-02-11] MEDS: ATORVASTATIN 20 MG TAB PO SCH (22:00)
[2022-02-11] MEDS: amLODIPine 5 MG TAB PO SCH (22:00)
[2022-02-12] MEDS: MORPHINE 2 MG/ML 1ML VIAL IV PRN (02:12)
[2022-02-12] MEDS: PERCOCET 5MG/325MG TAB PO PRN ×3 (04:26→19:45)
[2022-02-12 08:20] LABS: BASO # 0.1 10^3/uL (0.0-0.2); BASO % 0.3 % (0.0-1.0); EOS # 0.1 10^3/uL (0.0-0.5); EOS % 0.6 % (0.0-3.0); HEMATOCRIT 46.3 % (42.0-52.0); HEMOGLOBIN 15.2 g/dl (13.5-17.5); LYMPH # 7.8 10^3/uL (1.5-5.0); LYMPH % 46.8 % (24.0-44.0); MEAN CORPUSCULAR HEMOGLOBIN 29.9 pg (27.0-33.0); MEAN CORPUSCULAR HGB CONC 32.8 g/dl (32.0-36.5); NEUTROPHILS # 6.5 10^3/uL (1.5-8.5); NEUTROPHILS % 39.1 % (36.0-66.0); PLATELET COUNT, AUTOMATED 208 10^3/uL (150-450); RED BLOOD COUNT 5.09 10^6/uL (4.30-6.10); WHITE BLOOD COUNT 16.6 10^3/uL (4.0-10.0)
[2022-02-12 08:47] LABS: BLOOD UREA NITROGEN 20 MG/DL (9-23); CALCIUM LEVEL 8.4 MG/DL (8.3-10.6); CARBON DIOXIDE LEVEL 27 MMOL/L (20-31); CHLORIDE LEVEL 101 MMOL/L (98-107); CREATININE FOR GFR 0.71 MG/DL (0.70-1.30); GLOMERULAR FILTRATION RATE > 60.0 (>42); GLUCOSE, FASTING 122 MG/DL (74-106); POTASSIUM SERUM 4.6 MMOL/L (3.5-5.1); SODIUM LEVEL 136 MMOL/L (136-145)
[2022-02-12 09:02] LABS: MONO # 2.2 10^3/uL (0.0-0.8)
[2022-02-12] MEDS: DOXYCYCLINE HYCLATE 100MG TABLET PO SCH ×2 (09:22→21:26)
[2022-02-12] MEDS: LIDOCAINE 5% (LIDODERM) PATCH TD SCH (09:23)
[2022-02-12] MEDS: LOSARTAN 50MG TABLET PO SCH (09:23)
[2022-02-12] MEDS: INSULIN LISPRO (NovoLOG) PER UNIT SC SCH ×4 (09:23→23:10)
[2022-02-12 10:20] VITALS: BP 158/74
[2022-02-12 10:23] VITALS: BP 154/82
[2022-02-12 10:26] VITALS: BP 142/76
[2022-02-12] MEDS ORDERED: PERCOCET PO (12:02)
[2022-02-12] MEDS ORDERED: LIDO5TD TD (12:02)
[2022-02-12] MEDS ORDERED: AMOX875T2 PO (12:02)
[2022-02-12] MEDS: cefTRIAXone SOD 1 GM in D5W MINI-BAG PLUS 50 ML IV SCH (12:41)
[2022-02-12 13:40] VITALS: BP 162/84
[2022-02-12] MEDS: TORSEMIDE 10 MG TABLET PO SCH (17:24)
[2022-02-12 17:30] VITALS: BP 166/89
[2022-02-12] MEDS: ASPIRIN 81MG ENTERIC TABLET PO SCH (21:26)
[2022-02-12] MEDS: ATORVASTATIN 20 MG TAB PO SCH (21:26)
[2022-02-12] MEDS: amLODIPine 5 MG TAB PO SCH (21:27)
[2022-02-12] MEDS: ENOXAPARIN 40MG/0.4ML SYRINGE (J1650 PER 10MG) SC SCH (21:28)
[2022-02-13] MEDS ORDERED: TEMAZEPAM 7.5 MG CAP PO ONE (02:00)
[2022-02-13 05:52] LABS: BASO # 0.1 10^3/uL (0.0-0.2); BASO % 0.5 % (0.0-1.0); EOS # 0.1 10^3/uL (0.0-0.5); EOS % 0.6 % (0.0-3.0); HEMATOCRIT 45.3 % (42.0-52.0); LYMPH # 8.2 10^3/uL (1.5-5.0); MEAN CORPUSCULAR HGB CONC 33.1 g/dl (32.0-36.5); MEAN CORPUSCULAR VOLUME 90.6 fl (80.0-96.0); MONO % 13.9 % (2.0-8.0); NEUTROPHILS # 5.4 10^3/uL (1.5-8.5); NEUTROPHILS % 33.7 % (36.0-66.0); PLATELET COUNT, AUTOMATED 239 10^3/uL (150-450)
[2022-02-13] MEDS: PERCOCET 5MG/325MG TAB PO PRN ×2 (05:56→11:01)
[2022-02-13 06:00] VITALS: BP 118/80
[2022-02-13 06:30] LABS: MONO # 2.2 10^3/uL (0.0-0.8)
[2022-02-13] MEDS ORDERED: AUGMENTIN 875 MG TAB PO SCH (09:00)
[2022-02-13] MEDS ORDERED: IBUP1TAB6 PO (09:06)
[2022-02-13] MEDS ORDERED: PERCOCET PO (09:06)
[2022-02-13] MEDS ORDERED: ACET-897 PO (09:06)
[2022-02-13] MEDS ORDERED: AMOX875T2 PO (09:06)
[2022-02-13 09:11] VITALS: BP 122/82
[2022-02-13] MEDS: TORSEMIDE 10 MG TABLET PO SCH (09:11)
[2022-02-13] MEDS: DOXYCYCLINE HYCLATE 100MG TABLET PO SCH (09:11)
[2022-02-13] MEDS: LOSARTAN 50MG TABLET PO SCH (09:11)
[2022-02-13] MEDS: INSULIN LISPRO (NovoLOG) PER UNIT SC SCH (09:12)
[2022-02-13] MEDS: LIDOCAINE 5% (LIDODERM) PATCH TD SCH (09:12)
== END 2022-02-13 12:04 | disposition home or self-care (01) ==
LOC: EDBD 10:47 → M ED 10:47 → M ED INP 10:48 → ENRESERV 02-12 13:19 → M MSPAV 02-12 13:53
PROVIDERS: ADMIT Internal Medicine; ATTEND Student in an Organized Health Care Education/Training Program
DX: S22.41XA Multiple fractures of ribs, right side, initial encounter for closed fracture (principal); W00.0XXA Fall on same level due to ice and snow, initial encounter; R07.89 Other chest pain; D72.829 Elevated white blood cell count, unspecified; Z85.6 Personal history of leukemia; E11.9 Type 2 diabetes mellitus without complications; I11.9 Hypertensive heart disease without heart failure; E78.5 Hyperlipidemia, unspecified; I50.30 Unspecified diastolic (congestive) heart failure; G47.00 Insomnia, unspecified; M10.9 Gout, unspecified; Z79.82 Long term (current) use of aspirin; Z79.84 Long term (current) use of oral hypoglycemic drugs; Z79.899 Other long term (current) drug therapy; Z88.7 Allergy status to serum and vaccine; Z79.2 Long term (current) use of antibiotics
CPT/HCPCS: 36415; 71101; 71250; 80047; 80048; 80053; 80076; 83690; 83880; 84145; 85025; 87631; 93005; 94010; 96365; 96366; 96372; 96375; 96376; 97116; 97161; 97530; 99285; G0378; J0696; J1650; J1815; J2270

== ENCOUNTER → 2022-02-25 | Outpatient (REF) | payer MEDICARE ==
[~2022-02-25] MED LIST changes: +ACET-897 PO; +AMOX875T2 PO; +FARX1TAB3 PO; +HYDR-3713 PO; +IBUP1TAB6 PO; +LIDO5TD TD; +PERCOCET PO
[2022-02-25 19:17] LABS: BLOOD UREA NITROGEN 25 MG/DL (9-23); CARBON DIOXIDE LEVEL 34 MMOL/L (20-31); CHLORIDE LEVEL 94 MMOL/L (98-107); CREATININE FOR GFR 0.92 MG/DL (0.70-1.30); GLOMERULAR FILTRATION RATE > 60.0 (>42); GLUCOSE, FASTING 335 MG/DL (74-106); POTASSIUM SERUM 5.1 MMOL/L (3.5-5.1); SODIUM LEVEL 136 MMOL/L (136-145)
== END ==
LOC: M SFHCADAM 13:28
PROVIDERS: ATTEND Physician Assistant
DX: E11.65 Type 2 diabetes mellitus with hyperglycemia (principal)

== ENCOUNTER → 2022-04-12 | Outpatient (REF) | payer MEDICARE ==
[2022-04-12 13:39] LABS: HEMATOCRIT 42.7 % (42.0-52.0); HEMOGLOBIN 13.5 g/dl (13.5-17.5); MEAN CORPUSCULAR HEMOGLOBIN 29.7 pg (27.0-33.0); MEAN CORPUSCULAR HGB CONC 31.6 g/dl (32.0-36.5); MEAN CORPUSCULAR VOLUME 93.8 fl (80.0-96.0); PLATELET COUNT, AUTOMATED 327 10^3/uL (150-450); RED BLOOD COUNT 4.55 10^6/uL (4.30-6.10); WHITE BLOOD COUNT 15.1 10^3/uL (4.0-10.0)
[2022-04-12 13:55] LABS: ALBUMIN 3.6 G/DL (3.2-5.2); ALKALINE PHOSPHATASE 88 U/L (46-116); ALT/SGPT 19 U/L (7.0-40); AST/SGOT 14 U/L (<34); BILIRUBIN,TOTAL 0.5 MG/DL (0.3-1.2); BLOOD UREA NITROGEN 19 MG/DL (9-23); CALCIUM LEVEL 9.3 MG/DL (8.3-10.6); CARBON DIOXIDE LEVEL 23 MMOL/L (20-31); CHLORIDE LEVEL 104 MMOL/L (98-107); CREATININE FOR GFR 0.72 MG/DL (0.70-1.30); GLOMERULAR FILTRATION RATE > 60.0 (>42); GLUCOSE, FASTING 198 MG/DL (74-106); POTASSIUM SERUM 4.5 MMOL/L (3.5-5.1); SODIUM LEVEL 137 MMOL/L (136-145)
[2022-04-12 14:39] LABS: HEMOGLOBIN A1c 12.2 % (4.0-6.0)
[2022-04-12 14:50] LABS: ANISOCYTOSIS 1+; ATYPICAL LYMPH 14 % (0-5); BASOPHILS 1 % (0-1); LYMPHOCYTES 41 % (16-44); MONOCYTES 7 % (0-5); NEUTROPHILS 37 % (28-66)
[2022-04-12 14:51] LABS: PLATELET ESTIMATE NORMAL (NORMAL)
== END ==
LOC: M SFHCADAM 08:45
PROVIDERS: ATTEND Physician Assistant
DX: E11.65 Type 2 diabetes mellitus with hyperglycemia (principal); I11.9 Hypertensive heart disease without heart failure

== ENCOUNTER → 2022-04-12 | Outpatient (CLI) | payer MEDICARE | LOC: M ADAMS 08:57 | PROVIDERS: ATTEND Physician Assistant | DX: S60.221A Contusion of right hand, initial encounter (principal); E11.65 Type 2 diabetes mellitus with hyperglycemia; I11.9 Hypertensive heart disease without heart failure; X58.XXXA Exposure to other specified factors, initial encounter; Y92.9 Unspecified place or not applicable; Y93.9 Activity, unspecified; Y99.9 Unspecified external cause status ==

== ENCOUNTER → 2022-04-18 | Outpatient (CLI) | payer MEDICARE | LOC: M ADAMS 08:36 | PROVIDERS: ATTEND Physician Assistant | DX: S20.212A Contusion of left front wall of thorax, initial encounter (principal); S60.222A Contusion of left hand, initial encounter; Y92.9 Unspecified place or not applicable; Y93.9 Activity, unspecified ==

== ENCOUNTER → 2022-04-24 | Outpatient (CLI) | payer MEDICARE | LOC: M ADAMS 07:46 | PROVIDERS: ATTEND Physician Assistant Medical | DX: S69.91XA Unspecified injury of right wrist, hand and finger(s), initial encounter (principal); W18.30XA Fall on same level, unspecified, initial encounter; Y92.009 Unspecified place in unspecified non-institutional (private) residence as the place of occurrence of the external cause ==

== ENCOUNTER → 2022-07-02 | Outpatient (REF) | payer MEDICARE ==
[2022-07-02 18:05] LABS: BLOOD UREA NITROGEN 17 MG/DL (9-23); CALCIUM LEVEL 9.3 MG/DL (8.3-10.6); CARBON DIOXIDE LEVEL 28 MMOL/L (20-31); CHLORIDE LEVEL 101 MMOL/L (98-107); CREATININE FOR GFR 0.85 MG/DL (0.70-1.30); GLOMERULAR FILTRATION RATE > 60.0 (>42); GLUCOSE, FASTING 235 MG/DL (74-106); POTASSIUM SERUM 4.8 MMOL/L (3.5-5.1); SODIUM LEVEL 138 MMOL/L (136-145)
== END ==
LOC: M SFHCADAM 11:39
PROVIDERS: ATTEND Family Medicine
DX: E11.65 Type 2 diabetes mellitus with hyperglycemia (principal); I11.9 Hypertensive heart disease without heart failure

== ENCOUNTER → 2022-10-30 | Outpatient (REF) | payer MEDICARE ==
[2022-10-30 13:33] LABS: HEMATOCRIT 48.3 % (42.0-52.0); HEMOGLOBIN 15.9 g/dl (13.5-17.5); MEAN CORPUSCULAR HEMOGLOBIN 30.5 pg (27.0-33.0); MEAN CORPUSCULAR HGB CONC 32.9 g/dl (32.0-36.5); MEAN CORPUSCULAR VOLUME 92.5 fl (80.0-96.0); PLATELET COUNT, AUTOMATED 246 10^3/uL (150-450); RED BLOOD COUNT 5.22 10^6/uL (4.30-6.10); WHITE BLOOD COUNT 12.3 10^3/uL (4.0-10.0)
[2022-10-30 14:07] LABS: FREE T4 1.11 NG/DL (0.89-1.76); THYROID STIMULATING HORMONE 0.837 uIU/ML (0.55-4.78)
[2022-10-30 14:09] LABS: ALBUMIN 4.2 G/DL (3.2-5.2); ALKALINE PHOSPHATASE 91 U/L (46-116); ALT/SGPT 25 U/L (7.0-40); AST/SGOT 10 U/L (<34); BILIRUBIN,TOTAL 0.5 MG/DL (0.3-1.2); BLOOD UREA NITROGEN 17 MG/DL (9-23); CALCIUM LEVEL 9.6 MG/DL (8.3-10.6); CARBON DIOXIDE LEVEL 26 MMOL/L (20-31); CHLORIDE LEVEL 101 MMOL/L (98-107); CHOLESTEROL LEVEL 160 MG/DL (<200); CHOLESTEROL RISK RATIO 2.57 (<5); CREATININE FOR GFR 0.82 MG/DL (0.70-1.30); GLOMERULAR FILTRATION RATE > 60.0 (>42); GLUCOSE, FASTING 361 MG/DL (74-106); HDL CHOLESTEROL 62.1 MG/DL (>40); LDL CHOLESTEROL 66.1 MG/DL (<100); MAU/CREAT RATIO 16.6 MCG/MG (0.0-30.0); NON-HDL-C 97.9 MG/DL; POTASSIUM SERUM 4.9 MMOL/L (3.5-5.1); SODIUM LEVEL 137 MMOL/L (136-145); TOTAL PROTEIN 6.8 G/DL (5.7-8.2); TRIGLYCERIDES LEVEL 159 MG/DL (<150)
[2022-10-30 14:28] LABS: HEMOGLOBIN A1c > 14.0 % (4.0-6.0)
[2022-10-30 15:20] LABS: ATYPICAL LYMPH 14 % (0-5); BASOPHILS 1 % (0-1); EOSINOPHILS 1 % (0-3); LYMPHOCYTES 31 % (16-44); MONOCYTES 10 % (0-5); NEUTROPHILS 43 % (28-66); PLATELET ESTIMATE NORMAL (NORMAL); SMUDGE CELLS 1+
[2022-10-30 15:21] LABS: POIKILOCYTOSIS 1+
== END ==
LOC: M SFHCADAM 08:34
PROVIDERS: ATTEND Family Medicine
DX: E11.65 Type 2 diabetes mellitus with hyperglycemia (principal); M10.9 Gout, unspecified; C83.07 Small cell B-cell lymphoma, spleen; Z90.81 Acquired absence of spleen; E78.2 Mixed hyperlipidemia

== ENCOUNTER → 2023-05-05 | Outpatient (REF) | payer MEDICARE ==
[~2023-05-05] MED LIST changes: +IRBE75TA11 PO; -IRBE75TA4 PO
[2023-05-05 19:31] LABS: ALBUMIN 4.1 G/DL (3.2-5.2); ALKALINE PHOSPHATASE 85 U/L (46-116); ALT/SGPT 15 U/L (7.0-40); AST/SGOT < 8 U/L (<34); BILIRUBIN,TOTAL 0.3 MG/DL (0.3-1.2); BLOOD UREA NITROGEN 18 MG/DL (9-23); CALCIUM LEVEL 9.6 MG/DL (8.3-10.6); CARBON DIOXIDE LEVEL 26 MMOL/L (20-31); CHLORIDE LEVEL 100 MMOL/L (98-107); CREATININE FOR GFR 0.75 MG/DL (0.70-1.30); GLOMERULAR FILTRATION RATE > 60.0 (>42); GLUCOSE, FASTING 481 MG/DL (74-106); HEMOGLOBIN A1c > 14.0 % (4.0-6.0); POTASSIUM SERUM 4.5 MMOL/L (3.5-5.1); SODIUM LEVEL 135 MMOL/L (136-145); TOTAL PROTEIN 6.4 G/DL (5.7-8.2)
== END ==
LOC: M SFHCADAM 13:49
PROVIDERS: ATTEND Physician Assistant
DX: I11.9 Hypertensive heart disease without heart failure (principal); E11.65 Type 2 diabetes mellitus with hyperglycemia; J00 Acute nasopharyngitis [common cold]

== ENCOUNTER → 2023-07-17 | Outpatient (REF) | payer MEDICARE ==
[~2023-07-17] MED LIST changes: +DOXY-440 PO; -DOXY-444 PO
[2023-07-17 14:59] LABS: BLOOD UREA NITROGEN 18 MG/DL (9-23); CALCIUM LEVEL 9.3 MG/DL (8.3-10.6); CARBON DIOXIDE LEVEL 27 MMOL/L (20-31); CHLORIDE LEVEL 101 MMOL/L (98-107); GLOMERULAR FILTRATION RATE > 60.0 (>42); GLUCOSE, FASTING 268 MG/DL (74-106); SODIUM LEVEL 136 MMOL/L (136-145)
== END ==
LOC: M SFHCADAM 09:42
PROVIDERS: ATTEND Physician Assistant
DX: E11.65 Type 2 diabetes mellitus with hyperglycemia (principal)

== ENCOUNTER → 2023-09-04 | Outpatient (REF) | payer MEDICARE ==
[2023-09-04 13:29] LABS: HEMATOCRIT 48.9 % (42.0-52.0); HEMOGLOBIN 16.1 g/dl (13.5-17.5); MEAN CORPUSCULAR HEMOGLOBIN 29.7 pg (27.0-33.0); MEAN CORPUSCULAR HGB CONC 32.9 g/dl (32.0-36.5); MEAN CORPUSCULAR VOLUME 90.2 fl (80.0-96.0); PLATELET COUNT, AUTOMATED 287 10^3/uL (150-450); RED BLOOD COUNT 5.42 10^6/uL (4.30-6.10); WHITE BLOOD COUNT 13.4 10^3/uL (4.0-10.0)
[2023-09-04 13:53] LABS: PSA SCREENING 0.97 NG/ML (< 4.00)
[2023-09-04 13:57] LABS: THYROID STIMULATING HORMONE 1.355 uIU/ML (0.55-4.78); TOTAL 25(OH) VITAMIN D 22.7 NG/ML (20.0-100.0)
[2023-09-04 13:58] LABS: FREE T4 0.98 NG/DL (0.89-1.76)
[2023-09-04 13:59] LABS: CREATININE, URINE 30.6 MG/DL; MAU/CREAT RATIO 19.6 MCG/MG (0.0-30.0)
[2023-09-04 14:05] LABS: HEMOGLOBIN A1c > 14.0 % (4.0-6.0); URIC ACID 4.4 MG/DL (3.7-9.2)
[2023-09-04 14:08] LABS: ALBUMIN 4.1 G/DL (3.2-5.2); ALKALINE PHOSPHATASE 91 U/L (46-116); ALT/SGPT 16 U/L (7.0-40); AST/SGOT < 8 U/L (<34); BILIRUBIN,TOTAL 0.3 MG/DL (0.3-1.2); BLOOD UREA NITROGEN 25 MG/DL (9-23); CALCIUM LEVEL 9.7 MG/DL (8.3-10.6); CARBON DIOXIDE LEVEL 26 MMOL/L (20-31); CHLORIDE LEVEL 102 MMOL/L (98-107); CHOLESTEROL LEVEL 193 MG/DL (<200); CHOLESTEROL RISK RATIO 3.66 (<5); CREATININE FOR GFR 0.92 MG/DL (0.70-1.30); GLOMERULAR FILTRATION RATE > 60.0 (>42); GLUCOSE, FASTING 360 MG/DL (74-106); HDL CHOLESTEROL 52.6 MG/DL (>40); LDL CHOLESTEROL 112.8 MG/DL (<100); NON-HDL-C 140.4 MG/DL; POTASSIUM SERUM 4.5 MMOL/L (3.5-5.1); SODIUM LEVEL 136 MMOL/L (136-145); TOTAL PROTEIN 6.6 G/DL (5.7-8.2); TRIGLYCERIDES LEVEL 138 MG/DL (<150)
[2023-09-04 14:18] LABS: ATYPICAL LYMPH 6 % (0-5); BASOPHILS 2 % (0-1); EOSINOPHILS 3 % (0-3); LYMPHOCYTES 35 % (16-44); MONOCYTES 11 % (0-5); NEUTROPHILS 43 % (28-66); PLATELET ESTIMATE NORMAL (NORMAL)
[2023-09-04 14:19] LABS: ANISOCYTOSIS 1+; TEAR DROP CELLS 1+
[2023-09-04 14:20] LABS: TOXIC VACUOLATION 1+
== END ==
LOC: M SFHCADAM 09:32
PROVIDERS: ATTEND Family Medicine
DX: E11.65 Type 2 diabetes mellitus with hyperglycemia (principal); M10.9 Gout, unspecified; E55.9 Vitamin D deficiency, unspecified; C83.07 Small cell B-cell lymphoma, spleen; E78.2 Mixed hyperlipidemia; Z12.5 Encounter for screening for malignant neoplasm of prostate; Z90.81 Acquired absence of spleen

== ENCOUNTER → 2023-10-09 | Outpatient (REF) | payer MEDICARE ==
[2023-10-09 13:22] LABS: HEMATOCRIT 47.8 % (42.0-52.0); HEMOGLOBIN 15.7 g/dl (13.5-17.5); MEAN CORPUSCULAR HEMOGLOBIN 29.7 pg (27.0-33.0); MEAN CORPUSCULAR HGB CONC 32.8 g/dl (32.0-36.5); MEAN CORPUSCULAR VOLUME 90.5 fl (80.0-96.0); PLATELET COUNT, AUTOMATED 310 10^3/uL (150-450); RED BLOOD COUNT 5.28 10^6/uL (4.30-6.10); WHITE BLOOD COUNT 11.7 10^3/uL (4.0-10.0)
[2023-10-09 13:23] LABS: ALKALINE PHOSPHATASE 84 U/L (46-116); ALT/SGPT 22 U/L (7.0-40); AST/SGOT 11 U/L (<34); BILIRUBIN,TOTAL 0.3 MG/DL (0.3-1.2); BLOOD UREA NITROGEN 22 MG/DL (9-23); CALCIUM LEVEL 9.5 MG/DL (8.3-10.6); CARBON DIOXIDE LEVEL 30 MMOL/L (20-31); CHLORIDE LEVEL 101 MMOL/L (98-107); CREATININE FOR GFR 0.91 MG/DL (0.70-1.30); GLOMERULAR FILTRATION RATE > 60.0 (>42); GLUCOSE, FASTING 208 MG/DL (74-106); POTASSIUM SERUM 4.1 MMOL/L (3.5-5.1); SODIUM LEVEL 138 MMOL/L (136-145); TOTAL PROTEIN 6.8 G/DL (5.7-8.2)
[2023-10-09 13:55] LABS: HEMOGLOBIN A1c 13.8 % (4.0-6.0)
[2023-10-09 14:28] LABS: ATYPICAL LYMPH 5 % (0-5); BASOPHILS 1 % (0-1); EOSINOPHILS 3 % (0-3); LYMPHOCYTES 46 % (16-44); MONOCYTES 9 % (0-5); NEUTROPHILS 34 % (28-66); PLATELET ESTIMATE NORMAL (NORMAL)
== END ==
LOC: M SFHCADAM 09:42
PROVIDERS: ATTEND Family Medicine
DX: D72.829 Elevated white blood cell count, unspecified (principal); E11.65 Type 2 diabetes mellitus with hyperglycemia

== ENCOUNTER → 2023-12-10 | Outpatient (REF) | payer MEDICARE | LOC: M SFHCADAM 12:44 | PROVIDERS: ATTEND Physician Assistant | DX: J00 Acute nasopharyngitis [common cold] (principal) ==

== ENCOUNTER → 2023-12-19 | Outpatient (REF) | payer MEDICARE ==
[2023-12-19 12:29] LABS: CHOLESTEROL RISK RATIO 2.14 (<5); HDL CHOLESTEROL 53.2 MG/DL (>40); LDL CHOLESTEROL 45.4 MG/DL (<100); NON-HDL-C 60.8 MG/DL
[2023-12-19 12:31] LABS: ALBUMIN 4.1 G/DL (3.2-5.2); ALKALINE PHOSPHATASE 82 U/L (40-129); ALT/SGPT 19 U/L (7.0-40); AST/SGOT < 8 U/L (<34); BILIRUBIN,TOTAL 0.7 MG/DL (0.3-1.2); BLOOD UREA NITROGEN 23 MG/DL (9-23); CALCIUM LEVEL 10.3 MG/DL (8.3-10.6); CARBON DIOXIDE LEVEL 32 MMOL/L (20-31); CHLORIDE LEVEL 99 MMOL/L (98-107); CREATININE FOR GFR 0.93 MG/DL (0.70-1.30); GLOMERULAR FILTRATION RATE > 60.0 (>42); GLUCOSE, FASTING 312 MG/DL (74-106); POTASSIUM SERUM 4.5 MMOL/L (3.5-5.1); SODIUM LEVEL 135 MMOL/L (136-145)
[2023-12-19 13:12] LABS: HEMOGLOBIN A1c 10.5 % (4.0-6.0)
== END ==
LOC: M SFHCADAM 09:16
PROVIDERS: ATTEND Family Medicine
DX: E11.65 Type 2 diabetes mellitus with hyperglycemia (principal); E78.2 Mixed hyperlipidemia

== ENCOUNTER → 2024-03-10 | Outpatient (CLI) | payer MEDICARE | LOC: M ADAMS 10:31 | PROVIDERS: ATTEND Family Medicine | DX: T14.8XXA Other injury of unspecified body region, initial encounter (principal); L08.9 Local infection of the skin and subcutaneous tissue, unspecified ==

== ENCOUNTER → 2024-06-22 | Outpatient (CLI) | payer MEDICARE | LOC: M ADAMS 14:54 | PROVIDERS: ATTEND Family Medicine | DX: R05.3 Chronic cough (principal) ==

== ENCOUNTER → 2024-06-22 | Outpatient (REF) | payer MEDICARE ==
[2024-06-22 17:50] LABS: HEMATOCRIT 47.8 % (42.0-52.0); HEMOGLOBIN 15.6 g/dl (13.5-17.5); MEAN CORPUSCULAR HEMOGLOBIN 28.4 pg (27.0-33.0); MEAN CORPUSCULAR HGB CONC 32.6 g/dl (32.0-36.5); MEAN CORPUSCULAR VOLUME 86.9 fl (80.0-96.0); PLATELET COUNT, AUTOMATED 312 10^3/uL (150-450); WHITE BLOOD COUNT 12.5 10^3/uL (4.0-10.0)
[2024-06-22 18:36] LABS: HEMOGLOBIN A1c 12.2 % (4.0-6.0)
[2024-06-22 19:31] LABS: ALBUMIN 3.7 G/DL (3.2-5.2); ALKALINE PHOSPHATASE 88 U/L (40-129); ALT/SGPT 19 U/L (7.0-40); AST/SGOT 14 U/L (<34); BILIRUBIN,TOTAL 0.3 MG/DL (0.3-1.2); BLOOD UREA NITROGEN 15 MG/DL (9-23); CALCIUM LEVEL 8.9 MG/DL (8.3-10.6); CARBON DIOXIDE LEVEL 25 MMOL/L (20-31); CHLORIDE LEVEL 96 MMOL/L (98-107); CHOLESTEROL LEVEL 187 MG/DL (<200); CHOLESTEROL RISK RATIO 3.16 (<5); CREATININE FOR GFR 0.78 MG/DL (0.70-1.30); FREE T4 1.04 NG/DL (0.89-1.76); GLOMERULAR FILTRATION RATE > 90.0 (>42); GLUCOSE, FASTING 623 MG/DL (74-106); LDL CHOLESTEROL 75.2 MG/DL (<100); POTASSIUM SERUM 4.8 MMOL/L (3.5-5.1); SODIUM LEVEL 132 MMOL/L (136-145); THYROID STIMULATING HORMONE 1.027 uIU/ML (0.55-4.78); TOTAL PROTEIN 6.3 G/DL (5.7-8.2); TRIGLYCERIDES LEVEL 264 MG/DL (<150)
[2024-06-22 19:36] LABS: ATYPICAL LYMPH 7 % (0-5); LYMPHOCYTES 35 % (16-44); MONOCYTES 13 % (0-5); NEUTROPHILS 45 % (28-66)
[2024-06-22 19:37] LABS: PLATELET ESTIMATE NORMAL (NORMAL)
== END ==
LOC: M SFHCADAM 14:24
PROVIDERS: ATTEND Family Medicine
DX: E11.65 Type 2 diabetes mellitus with hyperglycemia (principal); E78.2 Mixed hyperlipidemia; C83.07 Small cell B-cell lymphoma, spleen

== ENCOUNTER 2024-08-20 16:26 | Emergency (ER) | payer MEDICARE ==
[~2024-08-20] VITALS: Ht 157.5 cm; Wt 99.6 kg
[2024-08-20] MEDS ORDERED: ISOVUE-370 76% 100 ML VIAL As Ordered ONE (17:03)
[2024-08-20 17:25] LABS: BASO # 0.1 10^3/uL (0.0-0.2); BASO % 0.6 % (0.0-1.0); EOS # 0.2 10^3/uL (0.0-0.5); EOS % 1.8 % (0.0-3.0); LYMPH # 4.5 10^3/uL (1.5-5.0); LYMPH % 37.0 % (24.0-44.0); MONO # 1.6 10^3/uL (0.0-0.8); MONO % 12.7 % (2.0-8.0); NEUTROPHILS # 5.8 10^3/uL (1.5-8.5); NEUTROPHILS % 47.7 % (36.0-66.0); PLATELET COUNT, AUTOMATED 328 10^3/uL (150-450)
[2024-08-20] MEDS: diphenhydrAMINE 50 MG/ML VIAL IV STA (17:37)
[2024-08-20] MEDS: ACETAMINOPHEN *IV* 1,000 MG in IV 1 EA IV ONE (17:37)
[2024-08-20 17:38] LABS: INR 0.89
[2024-08-20 17:56] LABS: CALCIUM LEVEL 9.3 MG/DL (8.3-10.6); CARBON DIOXIDE LEVEL 28.0 MMOL/L (20-31); CHLORIDE LEVEL 103.0 MMOL/L (98-107); CREATININE FOR GFR 1.04 MG/DL (0.70-1.30); GLOMERULAR FILTRATION RATE 73.0 (>42); POTASSIUM SERUM 4.2 MMOL/L (3.5-5.1); SODIUM LEVEL 143.0 MMOL/L (136-145)
[2024-08-20 19:42] VITALS: TEMP 98
[2024-08-20] MEDS: PROPARACAINE 0.5% OPHTH SOL 15ML OD ONE (19:44)
[2024-08-20] MEDS: MORPHINE 4 MG/ML 1 ML VIAL IV PRN (22:21)
[2024-08-20 23:39] VITALS: BP 208/95
[2024-08-20] MEDS: IRBESARTAN 150 MG TAB PO ONE (23:39)
[2024-08-20] MEDS: NS (Normal Saline) 0.9% 1,000 ML IV ONE (23:39)
[2024-08-20] MEDS: KETOROLAC 30 MG/ML 1 ML VIAL IV ONE (23:40)
[2024-08-21] MEDS ORDERED: IRBE75TA11 PO (00:51)
[2024-08-21 02:12] VITALS: BP 193/97; O2SAT 95
== END 2024-08-21 02:29 | disposition home or self-care (01) ==
LOC: EDBD 16:26 → M ED 16:26
DX: R51.9 Headache, unspecified (principal); I10 Essential (primary) hypertension; H53.2 Diplopia; I44.4 Left anterior fascicular block; E11.9 Type 2 diabetes mellitus without complications; Z90.89 Acquired absence of other organs; Z87.891 Personal history of nicotine dependence; Z88.7 Allergy status to serum and vaccine; Z79.1 Long term (current) use of non-steroidal anti-inflammatories (NSAID); Z79.82 Long term (current) use of aspirin; Z79.02 Long term (current) use of antithrombotics/antiplatelets; Z79.4 Long term (current) use of insulin; Z79.899 Other long term (current) drug therapy
CPT/HCPCS: 70450; 70496; 70498; 70544; 70551; 80047; 80048; 85025; 85610; 85730; 93005; 93041; 94760; 96361; 96365; 96366; 96375; 99285; J0131; J1200; J1885; J2765; Q9967

== ENCOUNTER → 2024-09-14 | Outpatient (REF) | payer MEDICARE ==
[2024-09-14 17:14] LABS: ESTIMATED AVERAGE GLUCOSE 220.0 MG/DL (60-110)
[2024-09-14 17:32] LABS: C REACTIVE PROTEIN QUANTITATIV < 0.50 MG/DL (<1.0); CALCIUM LEVEL 8.3 MG/DL (8.3-10.6); CARBON DIOXIDE LEVEL 29 MMOL/L (20-31); CHLORIDE LEVEL 102 MMOL/L (98-107); CREATININE FOR GFR 0.94 MG/DL (0.70-1.30); GLOMERULAR FILTRATION RATE 82.5 (>42); POTASSIUM SERUM 4.2 MMOL/L (3.5-5.1); SODIUM LEVEL 141 MMOL/L (136-145)
== END ==
LOC: M SFHCADAM 14:56
PROVIDERS: ATTEND Family Medicine
DX: E11.65 Type 2 diabetes mellitus with hyperglycemia (principal); S04.1 Injury of oculomotor nerve

== ENCOUNTER 2024-10-08 10:30 | Emergency (ER) | payer MEDICARE ==
[~2024-10-08] VITALS: Ht 157.5 cm; Wt 97.7 kg
[~2024-10-08 10:30] MED LIST changes: -IBUP1TAB6 PO; +SFHIBU600 PO
[2024-10-08] MEDS: LIDOCAINE W/EPINEPHrine 1% 20 ML VIAL SC ONE (11:30)
[2024-10-08 16:57] VITALS: BP 198/90; TEMP 96.6; O2SAT 94
[2024-10-09] MEDS ORDERED: INSULIN GLARGINE-YFGN 1 UNITS/0.01 ML SC SCH (09:00)
== END 2024-10-08 18:23 | disposition left against medical advice (07) ==
LOC: M ED 12:07
DX: S01.511A Laceration without foreign body of lip, initial encounter (principal); E11.9 Type 2 diabetes mellitus without complications; I10 Essential (primary) hypertension; Z85.6 Personal history of leukemia; I50.9 Heart failure, unspecified; Z53.21 Procedure and treatment not carried out due to patient leaving prior to being seen by health care provider; Z88.1 Allergy status to other antibiotic agents; Z79.1 Long term (current) use of non-steroidal anti-inflammatories (NSAID); Z79.82 Long term (current) use of aspirin; Z79.84 Long term (current) use of oral hypoglycemic drugs; Y92.89 Other specified places as the place of occurrence of the external cause; Y93.89 Activity, other specified; Y99.8 Other external cause status

== ENCOUNTER → 2024-11-04 | Outpatient (REF) | payer MEDICARE ==
[2024-11-04 19:29] LABS: BASO # 0.1 10^3/uL (0.0-0.2); BASO % 0.8 % (0.0-1.0); EOS # 0.3 10^3/uL (0.0-0.5); EOS % 2.0 % (0.0-3.0); LYMPH # 5.7 10^3/uL (1.5-5.0); LYMPH % 45.6 % (24.0-44.0); MONO # 1.6 10^3/uL (0.0-0.8); MONO % 12.6 % (2.0-8.0); NEUTROPHILS # 4.8 10^3/uL (1.5-8.5); NEUTROPHILS % 38.8 % (36.0-66.0); PLATELET COUNT, AUTOMATED 387 10^3/uL (150-450)
[2024-11-04 19:48] LABS: ALT/SGPT 21 U/L (7.0-40); AST/SGOT 14 U/L (<34); CALCIUM LEVEL 9.4 MG/DL (8.3-10.6); CARBON DIOXIDE LEVEL 29 MMOL/L (20-31); CHLORIDE LEVEL 104 MMOL/L (98-107); CHOLESTEROL LEVEL 144 MG/DL (<200); CHOLESTEROL RISK RATIO 2.37 (<5); CREATININE FOR GFR 0.78 MG/DL (0.70-1.30); FREE T4 1.23 NG/DL (0.89-1.76); GLOMERULAR FILTRATION RATE > 90.0 (>42); LDL CHOLESTEROL 64.7 MG/DL (<100); NON-HDL-C 83.3 MG/DL; POTASSIUM SERUM 4.5 MMOL/L (3.5-5.1); SODIUM LEVEL 141 MMOL/L (136-145); TRIGLYCERIDES LEVEL 93 MG/DL (<150)
[2024-11-04 20:15] LABS: ESTIMATED AVERAGE GLUCOSE 249.0 MG/DL (60-110)
== END ==
LOC: M SFHCADAM 11:15
PROVIDERS: ATTEND Family Medicine
DX: E11.65 Type 2 diabetes mellitus with hyperglycemia (principal); Z90.81 Acquired absence of spleen; C83.07 Small cell B-cell lymphoma, spleen; E78.2 Mixed hyperlipidemia

== ENCOUNTER 2024-11-16 09:07 | Emergency (ER) | payer MEDICARE ==
[~2024-11-16] VITALS: Ht 157.5 cm; Wt 99.4 kg
[2024-11-16 09:09] VITALS: BP 169/71; TEMP 97.9; O2SAT 95
[2024-11-16] MEDS: TETANUS/DIPHTH/ACEL. PERTUSSIS 0.5 ML SYR IM.IMMUN ONE (10:30)
== END 2024-11-16 10:35 | disposition home or self-care (01) ==
LOC: M ED 09:07
DX: T25.222A Burn of second degree of left foot, initial encounter (principal); T25.122A Burn of first degree of left foot, initial encounter; W93.11XA Contact with liquid air, initial encounter; E11.9 Type 2 diabetes mellitus without complications; I10 Essential (primary) hypertension; Z88.7 Allergy status to serum and vaccine; Z79.82 Long term (current) use of aspirin; Z79.02 Long term (current) use of antithrombotics/antiplatelets; Z79.4 Long term (current) use of insulin; Z79.899 Other long term (current) drug therapy; Z23 Encounter for immunization; Y92.89 Other specified places as the place of occurrence of the external cause; Y93.89 Activity, other specified; Y99.0 Civilian activity done for income or pay

== ENCOUNTER → 2025-01-04 | Outpatient (REF) | payer MEDICARE ==
[2025-01-04 18:23] LABS: APPEARANCE, URINE CLEAR (CLEAR); BACTERIA, URINE AUTO NEGATIVE (NEGATIVE); BILIRUBIN, URINE AUTO NEGATIVE (NEGATIVE); BLOOD, URINE BLOOD NEGATIVE (NEGATIVE); GLUCOSE, URINE (UA) AUTO 3+ mg/dL (NEGATIVE); KETONE, URINE AUTO NEGATIVE (NEGATIVE); LEUKOCYTE ESTERASE, URINE AUTO NEGATIVE (NEGATIVE); MUCUS, URINE SMALL (NEGATIVE); NITRITE, URINE AUTO NEGATIVE (NEGATIVE); PROTEIN, URINE AUTO NEGATIVE (NEGATIVE); RBC, URINE AUTO 0 /HPF (0-3); SPECIFIC GRAVITY URINE AUTO 1.028 (1.002-1.035); SQUAMOUS EPITHELIAL CELL UR AU 0 /HPF (0-6); UROBILINOGEN, URINE AUTO 0.2 mg/dL (0.0-2.0); WBC, URINE AUTO 0 /HPF (0-3)
[2025-01-04 18:33] LABS: PLATELET COUNT, AUTOMATED 342 10^3/uL (150-450)
[2025-01-04 18:44] LABS: ESTIMATED AVERAGE GLUCOSE 349.0 MG/DL (60-110)
[2025-01-04 18:58] LABS: PSA SCREENING 1.29 NG/ML (< 4.00)
[2025-01-04 19:02] LABS: ALT/SGPT 18.0 U/L (7.0-40); AST/SGOT 14.0 U/L (<34); CALCIUM LEVEL 9.0 MG/DL (8.3-10.6); CARBON DIOXIDE LEVEL 27.0 MMOL/L (20-31); CHLORIDE LEVEL 99.0 MMOL/L (98-107); CHOLESTEROL LEVEL 190.0 MG/DL (<200); CHOLESTEROL RISK RATIO 3.5 (<5); CREATININE FOR GFR 0.93 MG/DL (0.70-1.30); GLOMERULAR FILTRATION RATE 83.5 (>42); LDL CHOLESTEROL 87.6 MG/DL (<100); NON-HDL-C 135.8 MG/DL; POTASSIUM SERUM 5.2 MMOL/L (3.5-5.1); SODIUM LEVEL 136.0 MMOL/L (136-145); TRIGLYCERIDES LEVEL 241.0 MG/DL (<150)
[2025-01-04 19:05] LABS: FREE T4 1.11 NG/DL (0.89-1.76)
[2025-01-04 20:57] LABS: ATYPICAL LYMPH 19 % (0-5); EOSINOPHILS 3 % (0-3); LYMPHOCYTES 36 % (16-44); MONOCYTES 9 % (0-5); NEUTROPHILS 33 % (28-66); PLATELET ESTIMATE NORMAL (NORMAL)
== END ==
LOC: M SFHCADAM 14:51
PROVIDERS: ATTEND Family Medicine
DX: C83.07 Small cell B-cell lymphoma, spleen (principal); Z90.81 Acquired absence of spleen; E11.65 Type 2 diabetes mellitus with hyperglycemia; E78.2 Mixed hyperlipidemia; M10.9 Gout, unspecified; Z12.5 Encounter for screening for malignant neoplasm of prostate; N12 Tubulo-interstitial nephritis, not specified as acute or chronic
CPT/HCPCS: 80053; 80061; 81001; 83036; 84439; 84443; 84550; 85025; 87086; G0103